=== PATIENT | male | born 1985 | race African-American/Black ===

== ENCOUNTER → 2020-01-27 | Emergency (ER) | payer OTHER ==
[~2020-01-27] VITALS: Ht 162.6 cm; Wt 73.9 kg
== END | disposition left against medical advice (07) ==
LOC: ER 05:38
DX: Z53.20 Procedure and treatment not carried out because of patient's decision for unspecified reasons (principal)

== ENCOUNTER 2020-06-26 05:41 | Emergency (ER) | payer OTHER ==
[~2020-06-26] VITALS: Ht 162.6 cm; Wt 72.6 kg
[2020-06-26] MEDS ORDERED: PEPCID AC20 MG PO (08:51)
== END 2020-06-26 08:58 | disposition home or self-care (01) ==
LOC: ER 05:41
DX: K29.70 Gastritis, unspecified, without bleeding (principal); R07.89 Other chest pain